=== PATIENT | female | born 1955 | race Caucasian/White ===

== ENCOUNTER 2017-12-20 17:35 | Emergency (ER) | payer MEDICAID ==
[~2017-12-20] VITALS: Ht 165.1 cm; Wt 110.7 kg
[~2017-12-20 17:35] MED LIST: ASPIR 8181 MG PO; EFFIENT10 MG OR; KEFLEX500 MG PO; LISINOPRIL10 MG PO; NITROGLYCERIN0.4 MG OR; NORCO 5-325 TA1 EACH PO; PLAVIX 75 MG TA75 MG; TOPROL XL25 MG OR; ZITHROMAX; ZOCOR40 MG OR
[2017-12-20] MEDS ORDERED: VITAMIN D5000 UNIT PO (17:47)
[2017-12-20 19:01] LABS: ABSOLUTE EOSINOPHILS 0.2 thou/uL (0.0-0.7); ABSOLUTE LYMPHOCYTES 2.8 thou/uL (0.8-5.3); ABSOLUTE MONOCYTES 0.7 thou/uL (0.0-1.2); ABSOLUTE NEUTROPHILS 5.7 thou/uL (1.6-8.1); BASOPHILS 0.4 %; EOSINOPHILS 1.7 %; HEMATOCRIT 29.4 % (37.0-47.0); HEMOGLOBIN 9.9 gm/dL (12.0-15.0); LYMPHOCYTES 30.1 %; MCH 31.5 pg (26.0-34.0); MCHC 33.6 g/dL (28.0-37.0); MCV 93.7 fL (80.0-100.0); MONOCYTES 7.7 %; MPV 9.4 fl. (7.2-11.1); NUCLEATED RBCS 0 /100WBC; PLATELET COUNT* 212 thou/uL (150-400); POLYS 60.1 %; RBC 3.14 mil/uL (4.20-5.00); RDW-CV 14.2 % (10.5-14.5); WBC 9.4 thou/uL (4.0-11.0)
[2017-12-20 19:18] LABS: APTT 27.4 Seconds (25.0-31.3); INR 1.1; PROTIME 10.8 Seconds (9.20-11.50)
[2017-12-20 19:31] LABS: CALCIUM 8.8 mg/dL (8.5-10.1); CREATININE 0.8 mg/dL (0.6-1.3); POTASSIUM 3.4 mmol/L (3.5-5.1)
[2017-12-20 19:35] LABS: ALBUMIN 3.6 g/dL (3.4-5.0); TOTAL BILIRUBIN 0.5 mg/dL (<0.1-1.0); TOTAL PROTEIN 7.1 g/dL (6.4-8.2)
[2017-12-20] MEDS ORDERED: NABUMETONE 750750 M1 PO ×2 (19:50→19:55)
[2017-12-20] MEDS ORDERED: MEDROLDOSEPACK PO ×2 (19:50→19:55)
[2017-12-20] MEDS ORDERED: NORCO 5-325 TA1 EACH PO ×2 (19:50→19:55)
[2017-12-20 20:16] VITALS: BP 151/58
== END 2017-12-20 20:17 | disposition home or self-care (01) ==
LOC: M.ERS 17:35
PROVIDERS: Nurse Practitioner Family
DX: M17.11 Unilateral primary osteoarthritis, right knee (principal); L95.8 Other vasculitis limited to the skin; Z88.5 Allergy status to narcotic agent; Z88.1 Allergy status to other antibiotic agents; Z90.49 Acquired absence of other specified parts of digestive tract; Z98.890 Other specified postprocedural states; Z87.01 Personal history of pneumonia (recurrent)

== ENCOUNTER 2017-12-27 10:30 | Emergency (ER) | payer MEDICAID ==
[~2017-12-27] VITALS: Ht 165.1 cm; Wt 111.1 kg
[~2017-12-27 10:30] MED LIST changes: +MEDROLDOSEPACK PO; +NABUMETONE 750750 M1 PO; +VITAMIN D5000 UNIT PO
[2017-12-27 10:35] VITALS: BP 131/62
[2017-12-27] MEDS ORDERED: LIPITOR80 MG PO (10:39)
[2017-12-27] MEDS ORDERED: ZANTAC 150MG T150 MG PO (10:39)
[2017-12-27] MEDS ORDERED: IBUPROFEN 200200 M1 PO (10:39)
[2017-12-27] MEDS ORDERED: ANASTROZOLE1 MG PO (10:39)
[2017-12-27] MEDS ORDERED: GLUCOSAMINE HC500 MG PO (10:39)
[2017-12-27] MEDS ORDERED: FLONASE 0.05%50 MCG NASAL (10:40)
[2017-12-27] MEDS ORDERED: VITAMIN D5000 UNIT PO (10:40)
[2017-12-27] MEDS ORDERED: DOK100 MG PO (10:40)
[2017-12-27] MEDS ORDERED: NORCO 5-325 TA1 EACH PO (10:47)
== END 2017-12-27 10:57 | disposition home or self-care (01) ==
LOC: M.ERS 10:30
DX: S83.8X1A Sprain of other specified parts of right knee, initial encounter (principal); Z90.49 Acquired absence of other specified parts of digestive tract; Z98.890 Other specified postprocedural states; Z88.5 Allergy status to narcotic agent; Z88.1 Allergy status to other antibiotic agents; X50.1XXA Overexertion from prolonged static or awkward postures, initial encounter; Y93.89 Activity, other specified; Y92.89 Other specified places as the place of occurrence of the external cause; Y99.8 Other external cause status

== ENCOUNTER 2019-05-01 18:03 | Emergency (ER) | payer MEDICAID ==
[~2019-05-01] VITALS: Ht 165.1 cm; Wt 99.8 kg
[~2019-05-01 18:03] MED LIST changes: +ANASTROZOLE1 MG PO; +DOK100 MG PO; +FLONASE 0.05%50 MCG NASAL; +GLUCOSAMINE HC500 MG PO; +IBUPROFEN 200200 M1 PO; +LIPITOR80 MG PO; +ZANTAC 150MG T150 MG PO
[2019-05-01 19:12] LABS: INFLUENZA A ANTIGEN Negative (Negative); INFLUENZA B ANTIGEN Negative (Negative)
[2019-05-01] MEDS ORDERED: AUGMENTIN 875-1 EACH PO (19:50)
[2019-05-01 20:01] VITALS: BP 143/84
== END 2019-05-01 20:01 | disposition home or self-care (01) ==
LOC: M.ERS 18:03
PROVIDERS: Family Medicine
DX: J01.90 Acute sinusitis, unspecified (principal); Z88.1 Allergy status to other antibiotic agents; Z88.5 Allergy status to narcotic agent; Z90.49 Acquired absence of other specified parts of digestive tract; Z98.51 Tubal ligation status